=== PATIENT | male | born 1995 | race African-American/Black ===

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

== ENCOUNTER 2018-03-13 22:57 | Emergency (ER) | payer SELFPAY ==
[2018-03-13] MEDS: predniSONE 10 MG TABLET PO (23:22)
[2018-03-13] MEDS: IBUPROFEN 800 MG TABLET. PO (23:23)
[2018-03-13] MEDS: HYDROcodone/APAP 5/325MG 1 TAB TABLET PO (23:23)
== END 2018-03-13 23:26 | disposition home or self-care (01) ==
LOC: ER 23:26
DX: M54.42 Lumbago with sciatica, left side (principal)
CPT/HCPCS: 99284; J7512